=== PATIENT | male | born 1955 | race Caucasian/White ===

== ENCOUNTER 2016-11-06 06:40 | Day surgery (SDC) | payer MEDICARE, OTHER, MEDICAID ==
[~2016-11-06 06:40] MED LIST: ADULT LOW DOSE81 M1 PO; ALPRAZOLAM0.25 M3 PO; AMLODIPINE BESYL5 MG PO; ANTIVERT25 MG; BENICAR HCT 20-1 TAB PO; BENICAR HCT 40-1 T; BENZONATATE100 M1 PO; CARBAMAZEPINE PO; CLOPIDOGREL75 M1 PO; COMPAZINE5 M2 PO; COREG CR10 MG; COREG CR10 MG PO; COREG25 MG; COZAAR50 M1 PO; CULTURELLE1 EAC1 PO; CYMBALTA20 MG; CYMBALTA60 MG PO; DOXYCYCLINE MO100 M1 PO; FLEXERIL10 MG PO; FLUCONAZOLE100 M2 PO; FOSRENOL500 M1 PO; FUROSEMIDE20 MG PO; HUMALOG KW200 UNIT/1; HUMALOG100 U/ML; HUMALOG100 U/ML SQ; HYDROCHLOROTHIA25 MG; IRON325 ( 65; IRON325 ( 65 ) PO; JANUVIA25 M1 PO; K-DUR20 MEQ; K-DUR20 MEQ PO; LANTUS SOL100 UNIT/1 SC; LANTUS100 U/ML; LANTUS100 U/ML SC; LASIX20 MG; LASIX80 M1 PO; LEVAQUIN250 M3 PO; LOSARTAN POTAS100 M1 PO; NEURONTIN100 M1 PO; NORVASC5 M2 PO; PERCOCET 5-3251 EACH PO; PERCOCET 5/3251 TAB PO; RENVELA800 M1 PO; RIFAMPIN300 M1 PO; SENSIPAR30 M1 PO; SODIUM BICARBO650 M1 PO; TRAZODONE HCL150 M1 PO; TUMS200 MG PO; VIIBRYD40 M1 PO; XANAX0.25 MG PO; ZAROXOLYN5 MG; ZAROXOLYN5 MG PO; [UNRECOGNIZED DRUG - OTHER]; [UNRECOGNIZED DRUG - OTHER]
== END 2016-11-06 11:45 ==
LOC: RADSP 06:40 → SHSB 06:41
PROC: 037C3ZZ Dilation of Left Radial Artery, Percutaneous Approach (ICD-10-PCS; principal; 2016-11-06)
DX: T82.858A Stenosis of other vascular prosthetic devices, implants and grafts, initial encounter (principal); I12.0 Hypertensive chronic kidney disease with stage 5 chronic kidney disease or end stage renal disease; N18.6 End stage renal disease; Z88.2 Allergy status to sulfonamides; Z79.4 Long term (current) use of insulin; Z79.899 Other long term (current) drug therapy; Y83.8 Other surgical procedures as the cause of abnormal reaction of the patient, or of later complication, without mention of misadventure at the time of the procedure; Z98.890 Other specified postprocedural states
CPT/HCPCS: C1725; C1769; C1887; J1644; J1815; J2250; J3010; Q9967